=== PATIENT | male | born 1955 | race American Indian/Alaskan Native ===

== ENCOUNTER 2021-09-09 07:51 | Emergency (ER) | payer BC ==
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
[2021-09-09 08:54] VITALS: BP 149/85
--- NOTE | 2021-09-09 09:23 | XRay Report ---
RIGHT WRIST 4 VIEWS INDICATION: Right wrist injury.. COMPARISON: None. IMPRESSION: Mild soft tissue swelling is noted. There is normal bone mineralization. No acute osseo us injury or significant joint pathology is appreciated. RIGHT HAND 3 VIEWS INDICATION: Right hand injury. COMPARISON: None. IMPRESSION: There is mild diffuse soft tissue swelling. No acute osseous abnormality or significant joint pathology is detected. Signer Name: Gonzalez Keenan Jr, MD Signed: 09/09/2021 9:19 AM Workstation Name: [id number]
[2021-09-09] MEDS ORDERED: LIDOCAINE (2%) 20 MG/1 ML VIAL 20 ML MDV INFILTRATI ONE (10:26)
== END 2021-09-09 11:25 | disposition home or self-care (01) ==
LOC: ED 07:51
DX: S61.411A Laceration without foreign body of right hand, initial encounter (principal); M25.531 Pain in right wrist; I10 Essential (primary) hypertension; Z98.890 Other specified postprocedural states; Z79.82 Long term (current) use of aspirin; Z79.899 Other long term (current) drug therapy; V87.7XXA Person injured in collision between other specified motor vehicles (traffic), initial encounter; Y93.89 Activity, other specified; Y92.488 Other paved roadways as the place of occurrence of the external cause; Y99.8 Other external cause status
CPT/HCPCS: 99283